=== PATIENT | male | born 1980 | race Caucasian/White ===

== ENCOUNTER 2018-09-15 12:25 | Day surgery (SDC) | payer BC ==
[~2018-09-15] VITALS: Ht 182.9 cm; Wt 81.7 kg
[2018-09-15] MEDS ORDERED: MAGNESIUM SUPPLEMENT (13:23)
[2018-09-15] MEDS ORDERED: VITAMIN B12 (13:23)
--- NOTE | 2018-09-15 14:40 | HPN ---
Date/Time of Note Date/Time of Note DATE: 09/15/18 TIME: 14:40 Interval H&P Admission Note Pt. seen H&P reviewed: No system changes MELL LAM Sep 15, 2018 14:40
[2018-09-15] MEDS ORDERED: LIDOCAINE 2% (SDV) 5 ML INJ ONE (14:43)
[2018-09-15] MEDS ORDERED: PROPOFOL 20 ML ONE (14:43)
--- NOTE | 2018-09-15 14:45 | PREAC ---
Date/Time of Note Date/Time of Note DATE: 09/15/18 TIME: 14:44 Anesthesia Eval and Record Evaluation Time Pre-Procedure Interview DATE: 09/15/18 TIME: 14:44 Age 38 Sex male NPO: 8 hrs Preoperative diagnosis HEMATOCHEZIA Planned procedure COLONOSCOPY Past Medical History Past Medical History: None Surgery & Anesthesia Issues No known issue Meds Anticoagulation: No Beta Joan within 24 hr: No Reason Beta Joan not given: Pt. not on B-Joan Reported Medications [Vitamin B12] No Conflict Check 09/15/18 [Magnesium Supplement] No Conflict Check 09/15/18 Meds reviewed: Yes Allergies Coded Allergies: No Known Allergy (Unverified , 09/15/18) Allergies Reviewed: Yes Labs/Studies Labs Reviewed: Reviewed by anesthesiologist test: N/A Pre-procedure Exam Airway: Adequate mouth opening, Adequate thyromental dist Mallampati: Mallampati II Teeth: Normal Lung: Normal Heart: Normal ASA Physical Status ASA physical status: 1 Emergency: None Planned Anesthetic General/MAC: MAC Planned Pain Management Parenteral pain med Pre-operative Attestations Prior to commencing anesthesia and surgery, the patient was re-evaluated, there was verification of: *The patient's identity *The results of appropriate recent lab work and preoperative vital signs *The above evaluation not changing prior to induction *Anesthetic plan, risk benefits, alternative and complications discussed with patient/family; questions answered; patient/family understands, accepts and wishes to proceed. Darren Spicer M.D. Sep 15, 2018 14:45
[2018-09-15] MEDS ORDERED: MEPERIDINE 25 MG INJ IV PRN (15:00)
[2018-09-15] MEDS ORDERED: LABETALOL HCL 20MG INJ IV PRN (15:00)
[2018-09-15] MEDS ORDERED: IPRATROPIUM (NEB) 0.5 MG/2.5 ML AMP HHN PRN (15:00)
[2018-09-15] MEDS ORDERED: hydrALAzine 20 MG INJ IV PRN (15:00)
[2018-09-15] MEDS ORDERED: EPHEDrine SULFATE 50 MG/5 ML SYG IV PRN (15:00)
[2018-09-15] MEDS ORDERED: TRIMETHOBENZAMIDE 100 MG/ML VIAL IM PRN (15:00)
[2018-09-15] MEDS ORDERED: ALBUTEROL 0.083% (NEB) 2.5 MG/3 ML AMP HHN PRN (15:00)
[2018-09-15] MEDS ORDERED: OXYCODONE/ACETAMINOPHEN (5/325) TAB PO PRN ×2 (15:00)
[2018-09-15] MEDS ORDERED: FENTAnyl 50 MCG/ML VIAL IV PRN ×3 (15:00)
[2018-09-15] MEDS ORDERED: MIDAZOLAM 1 MG/ML 2 ML INJ IV PRN (15:00)
[2018-09-15] MEDS ORDERED: DIPHENHYDRAMINE 50 MG INJ IV PRN (15:00)
[2018-09-15] MEDS ORDERED: ONDANSETRON 4 MG INJ IV PRN (15:00)
[2018-09-15] MEDS ORDERED: HYDROmorphONE 1 MG/5 ML IV SYRINGE IV PRN ×3 (15:00)
--- NOTE | 2018-09-15 15:04 | PAC ---
Date/Time of Note Date/Time of Note DATE: 09/15/18 TIME: 15:03 Post-Anesthesia Notes Post-Anesthesia Note Last documented vital signs HR;66 RR:14 BP: 114/68 T:98.1 SPO2:98 Activity: WNL Respiratory function: WNL Cardiovascular function: WNL Mental status: Baseline Pain reasonably controlled: Yes Hydration appropriate: Yes Nausea/Vomiting absent: Yes Darren Spicer M.D. Sep 15, 2018 15:04
[2018-09-15 15:29] VITALS: BP 109/62; RESP 14
== END 2018-09-15 17:12 | disposition home or self-care (01) ==
LOC: GIL 12:25
PROVIDERS: ATTEND Internal Medicine Gastroenterology
DX: K64.8 Other hemorrhoids (principal); K57.30 Diverticulosis of large intestine without perforation or abscess without bleeding; D12.8 Benign neoplasm of rectum
CPT/HCPCS: 45380; 88305; Z7610